=== PATIENT | male | born 1965 | race Hispanic/Latino ===

== ENCOUNTER 2018-07-09 23:48 | Emergency (ER) | payer SELFPAY ==
[2018-07-10 02:14] VITALS: BP 129/88
--- NOTE | 2018-07-10 02:40 | Cat Scan Report ---
PROCEDURE: CT HEAD/BRAIN WO CON TECHNIQUE: Computerized tomography of the head was performed without contrast material. CT DOSE LENGTH PRODUCT: 1035.5 mGycm HISTORY: vision loss right eye COMPARISONS: None . FINDINGS: Skull and scalp: Normal . Paranasal sinuses: There is mucosal thickening in the paranasal sinuses. There are no air-fluid leve ls. . Ventricles and subarachnoid spaces: Normal . Cerebrum: No evidence of hemorrhage, acute infarction or mass . Cerebellum and brainstem: No evidence of hemorrhage, acute infarction or mass . Vasculature: Normal . IMPRESSION: There is no intracranial hemorrhage, edema, mass, mass effect or midline shift. There is bilateral maxillary sinusitis. This document is electronically signed by Aaron Rome MD., July 10 2018 02:38:32 AM ET
[2018-07-10] MEDS ORDERED: XYLOCAINE TOPICAL 4% TP ONE (02:43)
--- NOTE | 2018-07-10 02:50 | Emergency Department Report ---
HPI - General Chief Complaint: Eye Problems Time Seen by Provider: 07/10/18 01:59 - HPI HPI: Room 8 The patient is a 52-year-old male presenting with a chief complaint of blurred vision to the right eye. Patient states at approximately 23:00 on the redness began having blurred vision in his right eye. Patient states he began to see spots and had brown film obscuring his vision. Patient states he received streaks but denies flashes of light. Patient denies eye pain. Patient denies preceding trauma. Location: Right eye Duration: [See above] Quality: [See above] Severity: [See above] Modifying factors: [see above] Context: [see above] Mode of transportation: [not driving] ED Past Medical Hx - Past Medical History Previous Medical History?: No - Surgical History Past Surgical History?: Yes Additional Surgical History: Cataract Left eye - Social History Smoking Status: Never Smoker Substance Use Type: None - Medications Home Medications: Home Medications Medication Instructions Recorded Confirmed Last Taken Type No Known Home Medications [No 07/10/18 07/10/18 Unknown History Reported Home Medications] ED Review of Systems ROS: Stated complaint: BLURRED VISION IN RIGHT EYE Other details as noted in HPI Physical Exam - Physical Exam Vital Signs: Vital Signs 07/10/18 07/10/18 01:15 02:02 Temperature 98.1 F 98.2 F Pulse Rate 84 60 Respiratory 16 15 Rate Blood Pressure 127/81 Blood Pressure 129/88 [Right] O2 Sat by Pulse 96 Oximetry Physical Exam: GENERAL: The patient is well-developed well-nourished []. [] HEENT: Normocephalic. Atraumatic. Extraocular motions are intact. No hypopyon or hyphema. I'm unable to see a red reflex of the right eye. NECK: Supple. Trachea midline CHEST/LUNGS: There is no respiratory distress noted. ABDOMEN: There is no abdominal distention. SKIN: There is no rash. There is no edema. There is no diaphoresis. NEURO: The patient is awake, alert, and oriented. The patient is cooperative. The patient has normal speech MUSCULOSKELETAL: There is no evidence of acute injury. ED Course Vital Signs 07/10/18 07/10/18 01:15 02:02 Temperature 98.1 F 98.2 F Pulse Rate 84 60 Respiratory 16 15 Rate Blood Pressure 127/81 Blood Pressure 129/88 [Right] O2 Sat by Pulse 96 Oximetry - Consultations Consultation #1: 07/10/18 02:50 Ophthalmology paged 07/10/18 04:[address] Hickman-Patient follow-up in the [place] office at 07:45 ED Medical Decision Making - Lab Data Laboratory Tests 07/10/18 01:28 POC Glucose 90 - Radiology Data Radiology results: report reviewed (CT head), image reviewed (CT head) Findings [facility] [address] [place] [address] Cat Scan Report Signed Patient: CLARK JOSHI MR#: [id number] : 1965 Acct:[id number] Age/Sex: 52 / M ADM Date: 07/09/18 Loc: ED Attending Dr: Ordering Physician: RADHA BLAND NP Date of Service: 07/10/18 P rocedure(s): CT head/brain wo con Accession Number(s): [id number] cc: RADHA BLAND NP PROCEDURE: CT HEAD/BRAIN WO CON TECHNIQUE: Computerized tomography of the head was performed without contrast material. CT DOSE LENGTH PRODUCT: 1035.5 mGycm HISTORY: vision loss right eye COMPARISONS: None . FINDINGS: Skull and scalp: Normal . Paranasal sinuses: There is mucosal thickening in the paranasal sinuses. There are no air-fluid levels. . Ventricles and subarachnoid spaces: Normal . Cerebrum: No evidence of hemorrhage, acute infarction or mass . Cerebellum and brainstem: No evidence of hemorrhage, acute infarction or mass . Vasculature: Normal . IMPRESSION: There is no intracranial hemorrhage, edema, mass, mass effect or midline shift. There is bilateral maxillary sinusitis. This document is electronically signed by Aaron Sexton MD., July 10 2018 02:38:32 AM ET Transcribed By: CO Dictated By: AARON SEXTON MD Electronically Authenticated By: AARON SEXTON MD Signed Date/Time: 07/10/18239 DD/ 6 TD/TT: 07/10/18216 - Differential Diagnosis vitreous hemorrhage, retinal detachment Critical care attestation.: If time is entered above; I have spent that time in minutes in the direct care of this critically ill patient, excluding procedure time. ED Disposition Clinical Impression: Decreased vision of right eye Disposition: DC-01 TO HOME OR SELFCARE Is pt being admited?: No Does the pt Need Aspirin: No Condition: Stable Additional Instructions: Return to the emergency department immediately should you develop worsening symptoms, fever, inability to tolerate food or liquid or any other concerns. [facility] [Primary Care Provider] - 3-[address] Hickman, ophthalmology [Other] - 07/10/18 7:45 am Time of Disposition: 04:32
== END 2018-07-10 05:04 | disposition home or self-care (01) ==
LOC: ED 23:48
DX: H54.61 Unqualified visual loss, right eye, normal vision left eye (principal)
CPT/HCPCS: 70450; 82962